=== PATIENT | male | born 1950 | race Two or more races ===

== ENCOUNTER 2017-05-24 12:04 | Emergency (ER) | payer MEDICARE, BC ==
[2017-05-24 12:38] VITALS: BP 131/78
--- NOTE | 2017-05-24 13:03 | EDM.PDOC ---
ED HPI GENERAL MEDICAL PROBLEM - General Chief Complaint: General Stated Complaint: PASSED OUT YESTERDAY Time Seen by Provider: 05/24/17 12:55 Source of Information: Reports: Patient History Limitations: Reports: No Limitations - History of Present Illness INITIAL COMMENTS - FREE TEXT/NARRATIVE: pt just lost his . He has cared for her anwas very tied down and not able to exercise. He is now feeling that he does not have a good lung capacity and he is having pain between the shoulder blades. Onset: Gradual Duration: Day(s): Location: Reports: Chest, Other (pt is feeling sob. ) Associated Symptoms: Reports: Shortness of Breath, Other (pt feels like his lung capacity is not good. ) Denirs Pain Score (Numeric/FACES): 0 - Related Data Allergies Allergy/AdvReac Type Severity Reaction Status Date / Time ibuprofen [From Motrin] Allergy Intermediate Swelling Verified 05/24/17 12:20 Home Meds: Home Meds Calcium Carbonate [Calcium] 600 mg PO DAILY 02/02/16 [History] Cyanocobalamin (Vitamin B-12) [B-12] 1,000 mcg PO DAILY 02/02/16 [History] Fluticasone Propionate [Flonase] 2 spray NS DAILY 02/02/16 [History] Levothyroxine Sodium [Synthroid] 175 mcg PO DAILY 02/02/16 [History] Pantoprazole [Protonix] 40 mg PO BIDAC 02/02/16 [History] Vitamin B Complex [B Complex] 1 each PO DAILY 02/02/16 [History] Vitamin E 400 unit PO DAILY 02/02/16 [History] atorvaSTATin [Lipitor] 10 mg PO DAILY 02/02/16 [History] Aspirin 81 mg PO DAILY 02/15/16 [History] Clobetasol [Temovate 0.05% Oint] 1 film TOP BID 02/15/16 [History] Acyclovir [Zovirax 5% Crm] 1 applic TD Q3H PRN 01/18/17 [History] Cholecalciferol (Vitamin D3) [Vitamin D3] 1 tab PO DAILY 01/18/17 [History] Past Medical History HEENT History: Reports: Impaired Vision Other HEENT History: wears glasses Cardiovascular History: Reports: High Cholesterol Gastrointestinal History: Reports: Colon Polyp, GERD, Hiatal Hernia Musculoskeletal History: Reports: None Neurological History: Reports: Head Trauma Endocrine/Metabolic History: Reports: Hyperthyroidism, Vitamin D Deficiency Dermatologic History: Reports: Psoriasis Other Dermatologic History: vertiligo - Infectious Disease History Infectious Disease History: Reports: Chicken Pox - Past Surgical History Cardiovascular Surgical History: Reports: Other (See Below) Other Cardiovascular Surgeries/Procedures: Multiple heart testing in 2014. Diagnosed with GERD. Vein stripping r leg. Endocrine Surgical History: Reports: Other (See Below) Neurological Surgical History: Reports: Other (See Below) Other Neurological Surgeries/Procedures: achiesles tendon repair Musculoskeletal Surgical History: Reports: Shoulder Surgery Social & Family History - Family History Family Medical History: Noncontributory - Tobacco Use Smoking Status *Q: Never Smoker Second Hand Smoke Exposure: No - Caffeine Use Caffeine Use: Reports: Coffee, Energy Drinks - Alcohol Use Days Per Week of Alcohol Use: 0 - Recreational Drug Use Recreational Drug Use: No ED ROS GENERAL - Review of Systems Review Of Systems: See Below Constitutional: Reports: No Symptoms HEENT: Reports: No Symptoms Respiratory: Reports: No Symptoms Cardiovascular: Reports: No Symptoms Endocrine: Reports: No Symptoms GI/Abdominal: Reports: No Symptoms : Reports: No Symptoms Musculoskeletal: Reports: Other (pain between the shoulder blades mainly on the left. ) Skin: Reports: No Symptoms ED EXAM, GENERAL - Physical Exam Exam: See Below Exam Limited By: No Limitations General Appearance: Alert, Anxious, Mild Distress Ears: Normal TMs Nose: Normal Inspection Throat/Mouth: Normal Inspection Head: Atraumatic Neck: Normal Inspection Respiratory/Chest: No Respiratory Distress, Other (pt feels that he does not have as good of a lung capacity. He has been fairly inactive while he was caring for his . ) Cardiovascular: Regular Rate, Rhythm GI/Abdominal: Soft, Non-Tender (Male) Exam: Deferred Rectal (Males) Exam: Deferred Back Exam: Muscle Spasm, Other (pt has muscle spasm on the left side in the upper scapula area. ) Extremities: Normal Inspection Neurological: Alert, Oriented, Normal Cognition Psychiatric: Normal Affect Course - Vital Signs Last Recorded V/S: Last Vital Signs Temp 36.1 C 05/24/17 12:37 Pulse 94 05/24/17 12:37 Resp 16 05/24/17 12:37 BP 131/78 05/24/17 12:37 Pulse Ox 95 05/24/17 12:37 - Re-Assessments/Exams Free Text/Narrative Re-Assessment/Exam: 05/24/17 13:40 chest xray looks good. A lateral t spine was obtained which has some spurring and lipping in upper lumbar area. There could be some nerve impingement. 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
--- NOTE | 2017-05-24 14:15 | CR ---
Flowing anterior osteophytosis of the thoracic spine can be seen in diffuse idiopathic skeletal hyper ostosis. No acute fracture.
--- NOTE | 2017-05-24 14:15 | CR ---
Heart size within normal limits. Pulmonary vasculature within normal limits. No focal consolidation.
== END 2017-05-24 13:54 | disposition home or self-care (01) ==
LOC: JP.ED 12:04
DX: M47.894 Other spondylosis, thoracic region (principal); Z79.899 Other long term (current) drug therapy; Z88.6 Allergy status to analgesic agent; Z79.82 Long term (current) use of aspirin
CPT/HCPCS: 71010; 71010-26; 72020; 72020-26; 99284; 99285

== ENCOUNTER 2020-04-08 17:17 | Emergency (ER) | payer MEDICARE ==
[2020-04-08 18:54] VITALS: BP 166/93; PULSE 75
[2020-04-08] MEDS ORDERED: Ketorolac 30 MG/ML SDV IM ONE (19:35)
--- NOTE | 2020-04-08 19:37 | EDM.PDOC ---
ED HPI GENERAL MEDICAL PROBLEM - General Chief Complaint: Lower Extremity Injury/Pain Stated Complaint: FELL HURT RIGHT LEG Time Seen by Provider: 04/08/20 19:27 Source of Information: Reports: Patient, RN Notes Reviewed History Limitations: Reports: No Limitations - History of Present Illness INITIAL COMMENTS - FREE TEXT/NARRATIVE: 70-year-old gentleman presents emergency department today complaint of right knee pain, he injured himself when he slipped on the ice and his knee went backwards and he landed on it, difficulty bearing weight and ambulating secondary to pain right upper leg Pain Score (Numeric/FACES): 3 - Related Data Allergies Allergy/AdvReac Type Severity Reaction Status Date / Time ibuprofen [From Motrin] Allergy Intermediate Swelling Verified 04/08/20 19:12 Home Meds: Home Meds Calcium Carbonate [Calcium] 600 mg PO BEDTIME 02/02/16 [History] Cyanocobalamin (Vitamin B-12) [B-12] 1,000 mcg PO BEDTIME 02/02/16 [History] Fluticasone Propionate [Flonase] 2 spray NS DAILY 02/02/16 [History] Levothyroxine Sodium [Synthroid] 175 mcg PO DAILY 02/02/16 [History] Vitamin B Complex [B Complex] 1 each PO BEDTIME 02/02/16 [History] Vitamin E 400 unit PO BEDTIME 02/02/16 [History] atorvaSTATin [Lipitor] 10 mg PO BEDTIME 02/02/16 [History] Aspirin 81 mg PO BEDTIME 02/15/16 [History] Clobetasol [Temovate 0.05% Oint] 1 film TOP BID 02/15/16 [History] Acyclovir [Zovirax 5% Crm] 1 applic TD Q3H PRN 01/18/17 [History] Cholecalciferol (Vitamin D3) [Vitamin D3] 1 tab PO BEDTIME 01/18/17 [History] Past Medical History HEENT History: Reports: Impaired Vision Other HEENT History: wears glasses Cardiovascular History: Reports: High Cholesterol Gastrointestinal History: Reports: Colon Polyp, GERD, Hiatal Hernia Musculoskeletal History: Reports: None Neurological History: Reports: Head Trauma Endocrine/Metabolic History: Reports: Hyperthyroidism, Vitamin D Deficiency Dermatologic History: Reports: Psoriasis, Other (See Below) Other Dermatologic History: vertiligo - Infectious Disease History Infectious Disease History: Reports: Chicken Pox - Past Surgical History Cardiovascular Surgical History: Reports: Other (See Below) Other Cardiovascular Surgeries/Procedures: Multiple heart testing in 2015. Diagnosed with GERD. Vein stripping r leg. Endocrine Surgical History: Reports: Other (See Below) Neurological Surgical History: Reports: Other (See Below) Other Neurological Surgeries/Procedures: achiesles tendon repair bilateral Musculoskeletal Surgical History: Reports: Shoulder Surgery Social & Family History - Family History Family Medical History: Noncontributory - Tobacco Use Tobacco Use Status *Q: Never Tobacco User - Caffeine Use Caffeine Use: Reports: Coffee - Recreational Drug Use Recreational Drug Use: No Review of Systems - Review of Systems Review Of Systems: See Below Musculoskeletal: Reports: Joint Pain (Knee pain) Skin: Reports: Bruising ED EXAM, GENERAL - Physical Exam Exam: See Below Free Text/Narrative:: Examination of the right knee I do appreciate a superficial abrasion over the inferior patella there is some edema around the knee there is no joint line tenderness he does have significant pain with any flexing of the knee Exam Limited By: No Limitations General Appearance: Alert, WD/WN, No Apparent Distress Respiratory/Chest: No Respiratory Distress Course - Vital Signs Last Recorded V/S: Last Vital Signs Temp 97.9 F 04/08/20 19:16 Pulse 75 04/08/20 19:16 Resp 16 04/08/20 19:16 BP 166/93 H 04/08/20 19:16 Pulse Ox 96 04/08/20 19:16 - Orders/Labs/Meds Orders: Active Orders 24 hr Category Date Time Status Notify Provider Consults [RC] ASDIRECTED Care 04/08/20 20:25 Ordered Consult to Orthopedic Clinic [CONS] Routine Cons 04/08/20 20:25 Ordered Consult to Physician [CONS] Routine Cons 04/08/20 20:25 Ordered Knee Min 4V Rt [CR] Stat Exams 04/08/20 19:30 Ordered DME for Discharge [COMM] Per Unit Routine Oth 04/08/20 20:23 Ordered Meds: Medications Discontinued Medications Generic Name Dose Route Start Last Admin Trade Name Freq PRN Reason Stop Dose Admin Ketorolac Tromethamine 30 mg 04/08/20 19:35 04/08/20 19:54 Toradol IM 04/08/20 19:36 30 mg ONETIME ONE Administration Departure - Departure Time of Disposition: 20:26 Disposition: Home, Self-Care 01 Condition: Fair Clinical Impression: Right knee pain Qualifiers: Chronicity: acute Qualified Code(s): M25.561 - Pain in right knee - Discharge Information Instructions: Acute Knee Pain, Adult Referrals: Santos Lopez NP [Primary Care Provider] - Forms: ED Department Discharge Additional Instructions: Please use the crutches and brace for pain control until you are reevaluated by orthopedics they should call you for an appointment time tomorrow, use ibuprofen for baseline pain control use hydrocodone for breakthrough pain, call or return to the emergency department worsening of symptoms Sepsis Event Note (ED) - Evaluation Sepsis Screening Result: No Definite Risk - Focused Exam Vital Signs: Vital Signs Temp Pulse Resp BP Pulse Ox 04/08/20 19:16 97.9 F 75 16 166/93 H 96 04/08/20 18:52 97.9 F 75 16 166/93 H 96 - My Orders Last 24 Hours: My Active Orders 04/08/20 19:30 Knee Min 4V Rt [CR] Stat 04/08/20 20:23 DME for Discharge [COMM] Per Unit Routine 04/08/20 20:25 Notify Provider Consults [RC] ASDIRECTED Consult to Orthopedic Clinic [CONS] Routine Consult to Physician [CONS] Routine - Assessment/Plan Last 24 Hours: My Active Orders 04/08/20 19:30 Knee Min 4V Rt [CR] Stat 04/08/20 20:23 DME for Discharge [COMM] Per Unit Routine 04/08/20 20:25 Notify Provider Consults [RC] ASDIRECTED Consult to Orthopedic Clinic [CONS] Routine Consult to Physician [CONS] Routine Plan: Assessment Acuity = acute Site and laterality = right knee pain suspicious for ligament injury Etiology = unknown Manifestations = none Location of injury = Home Lab values = knee x-ray I did review films myself I cannot appreciate any acute process, the official read from radiology is pending Plan Because he has significant pain with any movement and flexing elected to put him in a knee immobilizer and he will use crutches consultation with orthopedics was set up for this week they will call him for an appointment time hydrocodone 10/11 25 1 tab p.o. 3 times daily as needed total #10 provided for pain control This note was dictated using [employer] voice recognition software please call with any questions on syntax or grammar.
--- NOTE | 2020-04-09 09:16 | CR ---
Knee Min 4V Rt CLINICAL HISTORY: Knee pain, fall FINDINGS: No acute fracture or dislocation is noted. There are no osseous lesions. There is some patellar spurring. There is density in the suprapatellar bursa. Impression: Osteoarthritic change Joint effusion No fracture or dislocation
== END 2020-04-08 21:48 | disposition home or self-care (01) ==
LOC: JP.ED 17:17
DX: M25.561 Pain in right knee (principal); E78.00 Pure hypercholesterolemia, unspecified; E05.90 Thyrotoxicosis, unspecified without thyrotoxic crisis or storm; Z88.6 Allergy status to analgesic agent; Z79.899 Other long term (current) drug therapy; Z79.82 Long term (current) use of aspirin
CPT/HCPCS: 73564-26-RT; 73564-RT; 96372; 99283-25; J1885

== ENCOUNTER 2020-04-19 07:58 | Day surgery (SDC) | payer MEDICARE ==
[2020-04-19] MEDS ORDERED: Lactated Ringers 1,000 ML IV SCH (08:45)
[2020-04-19] MEDS ORDERED: Nozin Nasal Sanitizer NASBOTH ONE (09:00)
[2020-04-19] MEDS ORDERED: ceFAZolin 2 GM in Premix Bag 1 BAG IV ONE (09:30)
[2020-04-19] MEDS ORDERED: Bupivacaine 0.5% 30 ML SDV ONE (10:03)
[2020-04-19] MEDS ORDERED: fentaNYL 250 MCG/5 ML SDV ONE (10:59)
[2020-04-19] MEDS ORDERED: Rocuronium 50 MG/5 ML Vial ONE (11:01)
[2020-04-19] MEDS ORDERED: Dexamethasone 4 MG/ML SDV ONE (11:01)
[2020-04-19] MEDS ORDERED: Glycopyrrolate 0.2 MG/ML 5 ML MDV ONE (11:01)
[2020-04-19] MEDS ORDERED: Ondansetron 4 MG/2 ML SDV ONE (11:01)
[2020-04-19] MEDS ORDERED: Neostigmine Methylsulfate 1 MG/ML 5 ML Syringe ONE (11:01)
[2020-04-19] MEDS ORDERED: Propofol 200 MG/20 ML SDV ONE (11:01)
[2020-04-19] MEDS ORDERED: Morphine 2 MG/ML SYRINGE IVPUSH ONE (12:43)
[2020-04-19] MEDS ORDERED: Acetaminophen/oxyCODONE 325-5 MG Tab PO PRN (13:33)
[2020-04-19 14:22] VITALS: BP 132/72; PULSE 72
--- NOTE | 2020-04-23 21:46 | OR ---
DATE OF PROCEDURE: 04/19/2020 SURGEON: Davide Wilson MD PREOPERATIVE DIAGNOSIS: Ruptured right quad tendon. POSTOPERATIVE DIAGNOSIS: Complete ruptured right quad tendon. PROCEDURE: Repair of right quadriceps tendon. ANESTHESIA: General. INDICATIONS: Sly is a very pleasant 70-year-old gentleman who sustained a fall, forcing his leg into a flexed position underneath him. He felt a pop at that time and examination is consistent with complete rupture of the quad tendon with a palpable defect at the superior pole of the patella and inability to actively extend the knee. He now presents for repair. Risks, benefits, and potential complications were discussed. DESCRIPTION OF PROCEDURE: After adequate anesthesia was obtained, the patient was placed supine with a tourniquet about the right upper thigh. Right leg was prepped and draped in a sterile fashion. Leg was exsanguinated and tourniquet insufflated to 300 mmHg pressure. A longitudinal incision was made from the inferior pole of patella just superior to the patella. It was carried down to the subcutaneous tissues and a small hematoma was encountered. Complete rupture of the quadriceps tendon at its insertion onto the patella is confirmed. Remainder of the hematoma and clot are evacuated by irrigation. The joint capsule was still intact. Rongeur is then used to decorticate the superior pole of the patella. Minor debridement of the end of the tendon is done removing any loose strands and scar tissue that were present. Two FiberWire sutures were then utilized and placed in a [id number] fashion into the tendon with a Krackow stitch. Drill hole was made from superior pole of the patella to the inferior pole of the patella. A JACOB suture passer was used to deliver the most medial suture through this drill hole. A 2nd drill hole was made in the central portion of the patella, again from the superior pole to the inferior pole, and the JACOB suture passer used to pass the central two sutures through this. Third suture was then secured in a similar fashion on the lateral side of the patella. With the knee in full extension, the sutures from the medial pair were tied down over the inferior pole of the patella, pulling the tendon into apposition with the patella. A 2nd set of sutures was tied down in a similar fashion. Additional sutures were then placed medial and lateral to this in the retinaculum and reinforcing sutures were placed in a [id number] fashion from the patellar tendon and through the quad tendon over the body of the patella. The wound was irrigated. The knee was then flexed and 90 degrees of flexion could be obtained without significant tension on the repair and no separation or gapping. The wound was then closed with 2-0 Vicryl and a running 3-0 Monocryl. Steri- Strips were applied. Sterile dressing was placed. The leg was then placed into a T scope postoperative brace in extension. The patient tolerated the procedure very well. There were no complications. Taken from the operating room in stable condition. Davide Wilson MD /[id number] MANUELITO
== END 2020-04-19 14:50 | disposition home or self-care (01) ==
LOC: JP.SDS 07:58
PROVIDERS: ATTEND Specialist
DX: S76.111A Strain of right quadriceps muscle, fascia and tendon, initial encounter (principal); I25.10 Atherosclerotic heart disease of native coronary artery without angina pectoris; E11.9 Type 2 diabetes mellitus without complications; E03.9 Hypothyroidism, unspecified; Z88.8 Allergy status to other drugs, medicaments and biological substances
CPT/HCPCS: 27385; 36415; 80053; 85027; 93005; 93010; A9270; J0690; J1100; J2270; J2405; J2704; J2710; J3010; J3490; J7120

== ENCOUNTER 2022-05-18 07:18 | Day surgery (SDC) | payer MEDICARE ==
[2022-05-18] MEDS ORDERED: Sodium Chloride 0.9% 10 ML Syringe FLUSH PRN (08:00)
[2022-05-18 08:46] VITALS: BP 138/77; PULSE 68
== END 2022-05-18 08:48 | disposition home or self-care (01) ==
LOC: JP.SDS 07:18
PROVIDERS: ATTEND Ophthalmology
DX: E11.36 Type 2 diabetes mellitus with diabetic cataract (principal); H26.9 Unspecified cataract; I10 Essential (primary) hypertension; E78.5 Hyperlipidemia, unspecified; K21.9 Gastro-esophageal reflux disease without esophagitis; E66.9 Obesity, unspecified; Z68.27 Body mass index [BMI] 27.0-27.9, adult; Z88.6 Allergy status to analgesic agent; Z79.899 Other long term (current) drug therapy
CPT/HCPCS: 66984; J3490; V2632

== ENCOUNTER 2023-07-15 00:47 | Emergency (ER) | payer MEDICARE ==
[2023-07-15] MEDS ORDERED: Ketorolac 30 MG/ML SDV IM ONE (00:58)
[2023-07-15] MEDS ORDERED: Cyclobenzaprine 10 MG Tab PO ONE (00:59)
[2023-07-15 03:40] VITALS: BP 145/60; PULSE 54
[2023-07-15] MEDS ORDERED: methylPREDNISolone Sodium Succinate 125 MG/2 ML SDV IM ONE (04:00)
== END 2023-07-15 04:41 | disposition home or self-care (01) ==
LOC: JP.ED 00:47
DX: M54.50 Low back pain, unspecified (principal); M62.830 Muscle spasm of back; I10 Essential (primary) hypertension; E78.00 Pure hypercholesterolemia, unspecified; K21.9 Gastro-esophageal reflux disease without esophagitis; E11.9 Type 2 diabetes mellitus without complications; Z79.84 Long term (current) use of oral hypoglycemic drugs; Z79.899 Other long term (current) drug therapy; Z88.6 Allergy status to analgesic agent
CPT/HCPCS: 72131; 76377; 96372; 99283; A9270; J1885; J2930

== ENCOUNTER 2024-11-07 06:33 | Day surgery (SDC) | payer MEDICARE ==
[2024-11-07] MEDS: Lactated Ringers 1,000 ML IV SCH (07:36)
[2024-11-07] MEDS ORDERED: Propofol 200 MG/20 ML SDV ONE (07:37)
[2024-11-07] MEDS ORDERED: fentaNYL 100 MCG/2 ML SDV ONE (07:37)
[2024-11-07 09:48] VITALS: BP 119/59; PULSE 66
== END 2024-11-07 09:50 | disposition home or self-care (01) ==
LOC: JP.SDS 06:33
PROVIDERS: ATTEND Surgery
DX: Z12.11 Encounter for screening for malignant neoplasm of colon (principal); D12.2 Benign neoplasm of ascending colon; K57.30 Diverticulosis of large intestine without perforation or abscess without bleeding; K21.9 Gastro-esophageal reflux disease without esophagitis; I10 Essential (primary) hypertension; E11.9 Type 2 diabetes mellitus without complications
CPT/HCPCS: 00811; 45380; J2704; J3010; J7120